=== PATIENT | female | born 1935 | race Caucasian/White ===

== ENCOUNTER → 2017-08-23 | Outpatient (CLI) | payer MEDICARE, BC ==
[~2017-08-23] MED LIST: AMOX-291 PO; ASPI-496 PO; BACL-19 PO; BISA10SU65 PR; CHOL2000 PO; CLAR500T PO; CRAN1TAB6 PO; DOCU-131 PO; ENOX30SY4 SQ; EZET10TA18 PO; EZET1TAB26 PO; FERR-51 PO; FEXO180T72 MT; FEXO180T72 PO; GLIM1TAB2 PO; INSU100I28 SC; INSU100I28 SQ; INSU100I28 SQ-INSULIN; INSU100V5 SQ-INSULIN; L.AC1CAP6 PO; LINA5TAB PO; LOSA1TAB19 PO; MAGN300C PO; METF10002 PO; METF500T9 PO; MONT10TA9 PO; MULT-717 PO; NITR100C56 PO; OMEP-110 PO; OXYC5CAP2 PO; OXYC5TAB3 PO; POLY17PO5 PO; PRED20TA PO; SIMV10TA3 PO; SODI650T PO; VALA1000 PO
[2017-08-23 13:43] LABS: BASOPHILS # (AUTO) 0.05 x10^3/uL (0-0.1); BASOPHILS % (AUTO) 1 % (0-1); EOSINOPHILS # (AUTO) 0.14 x10^3/uL (0-0.4); EOSINOPHILS % (AUTO) 1 % (1-7); LYMPHOCYTES # (AUTO) 3.46 x10^3/uL (1-3.4); LYMPHOCYTES % (AUTO) 32 % (22-44); MD NO; MEAN CORPUSCULAR HEMOGLOBIN 31.3 pg (27.0-34.8); MEAN CORPUSCULAR HGB CONC 33.6 g/dL (32.4-35.8); MEAN CORPUSCULAR VOLUME 93.2 fL (80-100); MEAN PLATELET VOLUME 7.4 fL (7.4-10.4); MONOCYTES # (AUTO) 0.65 x10^3/uL (0.2-0.8); MONOCYTES % (AUTO) 6 % (2-9); NEUTROPHILS % (AUTO) 61 % (42-75); PLATELET COUNT 337 x10^3/uL (130-400); RED BLOOD COUNT 4.56 x10^6/uL (3.82-5.3); RED CELL DISTRIBUTION WIDTH 13.3 % (9.6-15.2)
[2017-08-23 13:51] LABS: INTERNATIONAL NORMALIZED RATIO 0.99 (0.93-1.1); PROTHROMBIN TIME 10.2 Seconds (9.6-11.5)
[2017-08-23 13:55] LABS: ALANINE AMINOTRANSFERASE 37 U/L (12-78); ALBUMIN 3.9 g/dL (3.4-5.0); ANION GAP 8 mmol/L (5-15); CALCIUM 9.7 mg/dL (8.5-10.1); CHLORIDE 106 mmol/L (98-107); CREATININE 1.74 mg/dL (0.55-1.02)
[2017-08-23 13:58] LABS: ALKALINE PHOSPHATASE 105 U/L (45-117); BILIRUBIN,TOTAL 0.7 mg/dL (0.2-1.0)
== END | disposition home or self-care (01) ==
LOC: STAR 12:34
PROVIDERS: ATTEND Surgery
DX: Z01.818 Encounter for other preprocedural examination (principal)
CPT/HCPCS: 36415; 80053; 85025; 85610; 93005

== ENCOUNTER → 2017-08-27 | Outpatient (CLI) | payer MEDICARE, BC ==
[~2017-08-27] MED LIST changes: +OMNIPAQUE 350 MG/ML, 50 ML BOTTLE ONE
== END | disposition home or self-care (01) ==
LOC: CFH 13:07
PROVIDERS: ATTEND Surgery
DX: I25.10 Atherosclerotic heart disease of native coronary artery without angina pectoris (principal); K80.20 Calculus of gallbladder without cholecystitis without obstruction; C4A.62 Merkel cell carcinoma of left upper limb, including shoulder
CPT/HCPCS: 71260; 74177; Q9967

== ENCOUNTER 2017-09-16 11:18 | Day surgery (SDC) | payer MEDICARE, BC ==
[~2017-09-16] VITALS: Ht 172.7 cm; Wt 71.0 kg
[~2017-09-16 11:18] MED LIST changes: -OMNIPAQUE 350 MG/ML, 50 ML BOTTLE ONE
[2017-09-16 11:44] VITALS: BP 120/79
[2017-09-16] MEDS ORDERED: MAGN400T36 PO (11:55)
[2017-09-16] MEDS ORDERED: CHOL200074 PO (11:55)
[2017-09-16] MEDS ORDERED: LACTATED RINGERS 1,000 ML IV SCH (12:04)
[2017-09-16] MEDS ORDERED: SODIUM CHLORIDE 0.9% 1,000 ML IV SCH (12:15)
[2017-09-16] MEDS ORDERED: LIDOCAINE-MPF 1%, 2ML INFIL ONE (12:30)
[2017-09-16] MEDS ORDERED: PROPOFOL 10 MG/ML, 20ML ONE (12:54)
[2017-09-16] MEDS ORDERED: CEFAZOLIN 1,000 MG ONE (12:54)
[2017-09-16] MEDS ORDERED: MIDAZOLAM 1 MG/ML, 2ML ONE (12:54)
[2017-09-16] MEDS ORDERED: BUPIVACAINE/PF 0.5% INFIL ONE (13:21)
[2017-09-16] MEDS ORDERED: OXYcodone 5 MG/5 ML ORAL.SOL UDC PO PRN (14:00)
[2017-09-16] MEDS ORDERED: PROMETHAZINE 25 MG/ML, 1ML IV PRN (14:00)
[2017-09-16] MEDS ORDERED: METOPROLOL 1 MG/ML, 5ML IV PRN (14:00)
[2017-09-16] MEDS ORDERED: morphine SULFATE 10 MG/ML, 1ML IV PRN (14:00)
[2017-09-16] MEDS ORDERED: ALBUTEROL SULFATE 2.5 MG/3 ML NPPB PRN (14:00)
[2017-09-16] MEDS ORDERED: FENTANYL PF 100 MCG/2ML IV PRN (14:00)
[2017-09-16] MEDS ORDERED: ACETAMINOPHEN 325 MG TABLET PO PRN (14:00)
[2017-09-16] MEDS ORDERED: EPHEDRINE 50 MG/ML, 1ML IVPush PRN (14:00)
[2017-09-16] MEDS ORDERED: hydrALAzine 20 MG/ML, 1ML IV PRN (14:00)
[2017-09-16] MEDS ORDERED: MEPERIDINE/PF 25MG/0.5ML IVPush PRN (14:00)
[2017-09-16] MEDS ORDERED: ONDANSETRON 2MG/ML, 2ML IVPush PRN (14:00)
[2017-09-16] MEDS ORDERED: MIDAZOLAM 1 MG/ML, 2ML IV PRN (14:00)
[2017-09-16] MEDS ORDERED: HYDROcodone/APAP 7.5-325MG/15ML UDC PO PRN (14:00)
[2017-09-16] MEDS ORDERED: DIAZEPAM 5 MG/ML, 2ML IVPush PRN (14:00)
[2017-09-16] MEDS ORDERED: LABETALOL 5MG/ML, 20ML IV PRN (14:00)
[2017-09-16] MEDS ORDERED: PROMETHAZINE 12.5 MG SUPP PR PRN (14:00)
== END 2017-09-16 16:20 | disposition home or self-care (01) ==
LOC: OUT 11:18 → EDSTATUS 13:15 → OUT 16:20
PROVIDERS: ATTEND Surgery
DX: C4A.62 Merkel cell carcinoma of left upper limb, including shoulder (principal); E11.9 Type 2 diabetes mellitus without complications; E78.5 Hyperlipidemia, unspecified; K58.9 Irritable bowel syndrome, unspecified; Z98.890 Other specified postprocedural states; Z90.710 Acquired absence of both cervix and uterus; Z88.5 Allergy status to narcotic agent; Z88.8 Allergy status to other drugs, medicaments and biological substances; Z87.891 Personal history of nicotine dependence
CPT/HCPCS: 24079; 82962; 88307; 93005; J0690; J2250; J2704; J3490; J0171

== ENCOUNTER → 2017-10-27 | Outpatient (CLI) | payer MEDICARE, BC ==
[~2017-10-27] MED LIST changes: +CHOL200074 PO; +LACT1CAP35 PO; +MAGN400T36 PO
[2017-10-27 14:40] LABS: BASOPHILS # (AUTO) 0.05 x10^3/uL (0-0.1); BASOPHILS % (AUTO) 1 % (0-1); EOSINOPHILS # (AUTO) 0.24 x10^3/uL (0-0.4); EOSINOPHILS % (AUTO) 2 % (1-7); LYMPHOCYTES # (AUTO) 3.34 x10^3/uL (1-3.4); LYMPHOCYTES % (AUTO) 34 % (22-44); MD NO; MEAN CORPUSCULAR HEMOGLOBIN 30.7 pg (27.0-34.8); MEAN CORPUSCULAR HGB CONC 33.1 g/dL (32.4-35.8); MEAN CORPUSCULAR VOLUME 92.7 fL (80-100); MEAN PLATELET VOLUME 7.9 fL (7.4-10.4); MONOCYTES # (AUTO) 0.85 x10^3/uL (0.2-0.8); MONOCYTES % (AUTO) 9 % (2-9); NEUTROPHILS # (AUTO) 5.26 x10^3/uL (1.8-6.8); NEUTROPHILS % (AUTO) 54 % (42-75); PLATELET COUNT 307 x10^3/uL (130-400); RED BLOOD COUNT 4.71 x10^6/uL (3.82-5.3); RED CELL DISTRIBUTION WIDTH 13.4 % (9.6-15.2)
[2017-10-27 14:43] LABS: INTERNATIONAL NORMALIZED RATIO 0.97 (0.93-1.1)
[2017-10-27 14:45] LABS: CHLORIDE 105 mmol/L (98-107)
[2017-10-27 15:03] LABS: ALANINE AMINOTRANSFERASE 30 U/L (12-78); ALKALINE PHOSPHATASE 113 U/L (45-117); ANION GAP 10 mmol/L (5-15); BILIRUBIN,TOTAL 0.9 mg/dL (0.2-1.0); CALCIUM 10.5 mg/dL (8.5-10.1); CREATININE 1.76 mg/dL (0.55-1.02)
== END | disposition home or self-care (01) ==
LOC: STAR 13:13
PROVIDERS: ATTEND Surgery
DX: Z01.818 Encounter for other preprocedural examination (principal); C4A.8 Merkel cell carcinoma of overlapping sites; I10 Essential (primary) hypertension; E11.9 Type 2 diabetes mellitus without complications
CPT/HCPCS: 36415; 80053; 85025; 85610; 85730

== ENCOUNTER → 2017-10-27 | Outpatient (CLI) | payer MEDICARE, BC | END | disposition home or self-care (01) | LOC: LAB 14:17 | PROVIDERS: ATTEND Internal Medicine | DX: C4A.8 Merkel cell carcinoma of overlapping sites (principal) | CPT/HCPCS: 36415; 82784; 83615 ==

== ENCOUNTER 2017-11-04 05:51 | Day surgery (SDC) | payer MEDICARE, BC ==
[~2017-11-04] VITALS: Ht 172.7 cm; Wt 71.6 kg
[2017-11-04] MEDS ORDERED: LACTATED RINGERS 1,000 ML IV SCH (06:19)
[2017-11-04 06:24] VITALS: BP 118/76
[2017-11-04] MEDS ORDERED: BUPIVACAINE 0.25% ONE (06:55)
[2017-11-04] MEDS ORDERED: METHYLENE BLUE 10 MG/ML 10ML ONE (06:55)
[2017-11-04] MEDS ORDERED: EPINEPHRINE 1 MG/ML, 1ML ONE (06:55)
[2017-11-04] MEDS ORDERED: FENTANYL PF 250 MCG/5ML ONE (07:01)
[2017-11-04] MEDS ORDERED: ACETAMINOPHEN 325 MG TABLET PO PRN (07:30)
[2017-11-04] MEDS ORDERED: ONDANSETRON ODT 8 MG PO PRN (07:30)
[2017-11-04] MEDS ORDERED: FENTANYL PF 100 MCG/2ML IV PRN (07:30)
[2017-11-04] MEDS ORDERED: MEPERIDINE/PF 25MG/0.5ML IVPush PRN (07:30)
[2017-11-04] MEDS ORDERED: HYDROmorphone 1 MG/ML, 1ML IV PRN (07:30)
[2017-11-04] MEDS ORDERED: OXYcodone 5 MG/5 ML ORAL.SOL UDC PO PRN (07:30)
[2017-11-04] MEDS ORDERED: CEFAZOLIN 1,000 MG ONE ×2 (07:35)
[2017-11-04] MEDS ORDERED: PROPOFOL 10 MG/ML, 20ML ONE (07:35)
[2017-11-04] MEDS ORDERED: LIDOCAINE-MPF 2% ,5ML ONE (07:35)
[2017-11-04] MEDS ORDERED: ONDANSETRON 2MG/ML, 2ML ONE ×2 (07:35)
[2017-11-04] MEDS ORDERED: BUPIVACAINE/PF-EPI 0.25% 1:200K IM ONE (07:53)
[2017-11-04] MEDS ORDERED: DEXAMETHASONE 4 MG/ML, 5ML ONE (10:53)
== END 2017-11-04 11:30 ==
LOC: OUT 05:51
PROVIDERS: ATTEND Surgery
DX: C4A.9 Merkel cell carcinoma, unspecified (principal); E11.9 Type 2 diabetes mellitus without complications; E78.5 Hyperlipidemia, unspecified; K58.9 Irritable bowel syndrome, unspecified; I10 Essential (primary) hypertension; Z98.890 Other specified postprocedural states; Z90.710 Acquired absence of both cervix and uterus; Z85.828 Personal history of other malignant neoplasm of skin; Z88.8 Allergy status to other drugs, medicaments and biological substances; Z87.891 Personal history of nicotine dependence
CPT/HCPCS: 38745; 82962; 88307; J0171; J0690; J1100; J2405; J2704; J3010; J3490; J7120; Q9968

== ENCOUNTER → 2017-12-06 | Outpatient (CLI) | payer MEDICARE, BC | END | disposition home or self-care (01) | LOC: ROC 08:40 | PROVIDERS: ATTEND Radiology Radiation Oncology | DX: C4A.62 Merkel cell carcinoma of left upper limb, including shoulder (principal); E11.22 Type 2 diabetes mellitus with diabetic chronic kidney disease; N18.9 Chronic kidney disease, unspecified; E78.5 Hyperlipidemia, unspecified | CPT/HCPCS: G0463 ==

== ENCOUNTER → 2018-02-03 | Outpatient (CLI) | payer MEDICARE, BC | END | disposition home or self-care (01) | LOC: ROC 07:41 | PROVIDERS: ATTEND Radiology Radiation Oncology | DX: C4A.62 Merkel cell carcinoma of left upper limb, including shoulder (principal) | CPT/HCPCS: G0463 ==

== ENCOUNTER → 2018-05-04 | Outpatient (CLI) | payer MEDICARE, BC | END | disposition home or self-care (01) | LOC: ROC 08:00 | PROVIDERS: ATTEND Radiology Radiation Oncology | DX: C4A.62 Merkel cell carcinoma of left upper limb, including shoulder (principal) | CPT/HCPCS: G0463 ==

== ENCOUNTER → 2018-06-24 | Outpatient (CLI) | payer MEDICARE, BC | END | disposition home or self-care (01) | LOC: EDSTATUS 06-18 17:06 → ROC 07:40 | PROVIDERS: ATTEND Radiology Radiation Oncology | DX: C4A.62 Merkel cell carcinoma of left upper limb, including shoulder (principal) | CPT/HCPCS: G0463 ==

== ENCOUNTER 2018-07-11 13:00 | Outpatient (CLI) | payer MEDICARE, BC ==
[2018-07-11] MEDS ORDERED: OMNIPAQUE 350 MG/ML, 150 ML BOTTLE ONE (14:51)
== END 2018-07-11 23:59 | disposition home or self-care (01) ==
LOC: CFH 13:00
PROVIDERS: ATTEND Radiology Radiation Oncology
DX: C4A.62 Merkel cell carcinoma of left upper limb, including shoulder (principal); E04.2 Nontoxic multinodular goiter; I65.22 Occlusion and stenosis of left carotid artery; K80.20 Calculus of gallbladder without cholecystitis without obstruction
CPT/HCPCS: 70491; 71260; 74177; Q9967

== ENCOUNTER → 2018-07-13 | Outpatient (CLI) | payer MEDICARE, BC | END | disposition home or self-care (01) | LOC: ROC 09:28 → EDSTATUS 05-16 14:56 | PROVIDERS: ATTEND Radiology Radiation Oncology | DX: Z08 Encounter for follow-up examination after completed treatment for malignant neoplasm (principal); C4A.62 Merkel cell carcinoma of left upper limb, including shoulder | CPT/HCPCS: G0463 ==

== ENCOUNTER 2020-09-18 11:15 | Emergency (ER) | payer MEDICARE, BC ==
[~2020-09-18] VITALS: Ht 172.7 cm; Wt 69.3 kg
[~2020-09-18 11:15] MED LIST changes: +CLAR-14 PO; -CLAR500T PO; -EZET10TA18 PO; +EZET10TA70 PO; -GLIM1TAB2 PO; +GLIM1TAB7 PO; +METF-754 PO; -METF500T9 PO; +MONT10TA17 PO; -MONT10TA9 PO; -OXYC5TAB3 PO; +OXYC5TAB98 PO; +SIMV10TA18 PO; -SIMV10TA3 PO; -VALA1000 PO; +VALA10007 PO
--- NOTE | 2020-09-18 11:39 | NUR ---
PT AMBULATED TO ROOM FROM TRIAGE. PT CO OF PAIN, REDNESS AND SWELLING IN LEFT UPPER ARM BY FISTULA. PT HAD US YESTERDAY AND DID NOT FIND ANY BLOOD CLOTS. PT STATED THAT SHE NO LONGER GETS DIALYSIS. POSITIVE CMS IN IN LEFT ARM. PT DENIES ANY FEVER, SOB, N/V/D.
--- NOTE | 2020-09-18 12:47 | NUR ---
PT RESTING IN [place] COMFORTABLY. AWAITING IMAGING OF LUE.
--- NOTE | 2020-09-18 14:01 | NUR ---
PT RESTING COMFORTABLY IN [facility]. CALL LIGHT WITHIN REACH.
--- NOTE | 2020-09-18 14:20 | NUR ---
US AT BEDSIDE
--- NOTE | 2020-09-18 15:30 | NUR ---
PT AMBULATED TO RESTROOM WITHOUT ASSISTANCE.
--- NOTE | 2020-09-18 16:17 | NUR ---
dr khalil spoke with dr steele
[2020-09-18 16:34] VITALS: BP 137/57
--- NOTE | 2020-09-18 16:34 | NUR ---
Task RN: Pt without needs at this time.
--- NOTE | 2020-09-18 17:09 | NUR ---
DISCHARGE INSTRUCTIONS REVIEWED WITH PT. ALL QUESTIONS ANSWERED AT THIS TIME.
== END 2020-09-18 17:11 | disposition home or self-care (01) ==
LOC: ED 12:06
DX: T82.848A Pain due to vascular prosthetic devices, implants and grafts, initial encounter (principal); E78.5 Hyperlipidemia, unspecified; E11.9 Type 2 diabetes mellitus without complications; I10 Essential (primary) hypertension; Z90.89 Acquired absence of other organs; Z90.710 Acquired absence of both cervix and uterus; Z87.891 Personal history of nicotine dependence
CPT/HCPCS: 93990; 99285